=== PATIENT | female | born 2000 | race Caucasian/White ===

== ENCOUNTER 2022-12-10 02:46 | Emergency (ER) | payer OTHER ==
[~2022-12-10] VITALS: Ht 165.1 cm; Wt 59.1 kg
[2022-12-10 02:55] VITALS: TEMP 96.9
[2022-12-10] MEDS ORDERED: IPRATROPIUM 0.5MG/ALBUTEROL 2.5MG INH SOL UD 3ML (DUONEB) NEB PRN (02:55)
[2022-12-10] MEDS ORDERED: PRED20TA PO (03:44)
[2022-12-10] MEDS ORDERED: IPRATROPIUM 0.5MG/ALBUTEROL 2.5MG INH SOL UD 3ML (DUONEB) NEB ONE (03:45)
[2022-12-10] MEDS ORDERED: predniSONE 20 MG TAB PO ONE (03:45)
[2022-12-10 04:15] VITALS: BP 105/62; O2SAT 98
== END 2022-12-10 04:34 | disposition home or self-care (01) ==
LOC: M ED 02:46
DX: J45.901 Unspecified asthma with (acute) exacerbation (principal); Z91.048 Other nonmedicinal substance allergy status; Z79.52 Long term (current) use of systemic steroids
CPT/HCPCS: 87486; 87581; 87633; 87798; 93041; 94640; 94760; 99284; J7512